=== PATIENT | male | born 2000 | race Caucasian/White ===

== ENCOUNTER 2022-05-11 19:29 | Emergency (ER) | payer OTHER ==
[~2022-05-11] VITALS: Ht 172.7 cm; Wt 76.5 kg
[2022-05-12] MEDS ORDERED: diphenhydrAMINE 12.5MG/5ML ELIXIR UDC PO ONE (03:15)
[2022-05-12] MEDS ORDERED: MAALOX 30 ML SUSP *UDC PO ONE (03:15)
[2022-05-12] MEDS ORDERED: MAGICMW SSP (03:26)
[2022-05-12 03:33] VITALS: BP 120/64
== END 2022-05-12 03:34 | disposition home or self-care (01) ==
LOC: M ED 19:29
DX: J39.2 Other diseases of pharynx (principal)